=== PATIENT | male | born 1955 | race Caucasian/White ===

== ENCOUNTER 2016-04-14 04:32 | Emergency (ER) | payer OTHER ==
[~2016-04-14] VITALS: Ht 175.3 cm; Wt 89.0 kg
[~2016-04-14 04:32] MED LIST: ADULT LOW DOSE81 M1 PO; ASPIRIN E.C.81 M1 PO; KEFLEX500 MG PO; MULTI VITAMIN PO; PREVASTATIN; VICODIN,LORT1 TABLET PO; Vicodin,Lortab 5/500 PO
[2016-04-14 05:27] LABS: CHLORIDE 109 mEq/L (99-109); POTASSIUM 4.4 mEq/L (3.7-5.4); SODIUM 139 mEq/L (136-147)
[2016-04-14 05:29] LABS: GLUCOSE 96 mg/dL (70-99)
[2016-04-14 05:30] LABS: ANION GAP 8 MEQ/L (2-14)
[2016-04-14 05:33] LABS: GFR ESTIMATE (CALCULATED) > 59 mL/min/
[2016-04-14 05:34] LABS: UREA NITROGEN (BUN) 16 mg/dL (9-23)
[2016-04-14 05:38] LABS: TROP-I INTERPRETATION NEGATIVE; TROPONIN-I < 0.01 ng/mL (0.0-0.30)
[2016-04-14 05:59] LABS: HEMATOCRIT 55.8 % (38.0-50.0); MCH 32.7 PG (29.0-34.0); MCHC 35.3 G/DL (30.0-36.0); MCV 92.7 FL (86-99); MEAN PLAT.VOLUME 9.8 uM^3 (9.0-12.4); PLATELET COUNT 214 K/uL (156-360); RBC DIS.WIDTH-CV 14.1 % (11.8-14.6); RBC DIS.WIDTH-SD 46.5 % (39-53); RED BLOOD COUNT 6.02 M/uL (4.00-5.50); WHITE BLOOD COUNT 9.6 K/uL (4.1-10.2)
[2016-04-14 08:07] LABS: TROP-I INTERPRETATION NEGATIVE; TROPONIN-I < 0.01 ng/mL (0.0-0.30)
[2016-04-14 09:12] LABS: D-DIMER ELISA 0.33 mg/L FEU (< 0.57)
[2016-04-14] MEDS ORDERED: TYLENOL WITH C1 EACH PO (10:45)
[2016-04-14] MEDS ORDERED: ZITHROMAX250 MG PO (10:45)
[2016-04-14] MEDS ORDERED: LIDOCAINE700 MG TD (10:45)
[2016-04-14 11:04] VITALS: BP 133/77
== END 2016-04-14 11:05 | disposition home or self-care (01) ==
LOC: EME 04:32
PROVIDERS: Emergency Medicine
DX: R06.00 Dyspnea, unspecified (principal); R07.89 Other chest pain; F17.200 Nicotine dependence, unspecified, uncomplicated
CPT/HCPCS: 71020; 80048; 83880; 84484; 85027; 85379; 93005; 94640; 99281; 99284; J1885